=== PATIENT | female | born 1980 | race Caucasian/White ===

== ENCOUNTER 2017-08-29 08:50 | Inpatient (IN) | payer OTHER ==
[~2017-08-29] VITALS: Ht 165.1 cm; Wt 110.6 kg
[2017-08-29] MEDS ORDERED: iohexol 350MG/ML 100ml bottle IV ONE (09:30)
[2017-08-29 09:46] LABS: BASOPHILS % (AUTO) 0.2 % (0-1); EOSINOPHILS # (AUTO) 0.4 X10'3 (0-0.9); EOSINOPHILS % (AUTO) 3.4 % (0-6); HEMATOCRIT 29.8 % (35.0-45.0); HEMOGLOBIN 9.4 g/dl (12.0-16.0); LYMPHOCYTES # (AUTO) 1.4 X10'3 (1.1-4.8); MEAN CORPUSCULAR HEMOGLOBIN 22.4 PG (27.0-31.0); MEAN CORPUSCULAR HGB CONC 31.4 % (33.0-36.5); MEAN CORPUSCULAR VOLUME 71.4 FL (78-98); MEAN PLATELET VOLUME 7.7 FL (7.4-10.4); MONOCYTES # (AUTO) 0.7 X10'3 (0-0.9); MONOCYTES % (AUTO) 6.1 % (2-12); NEUTROPHILS # (AUTO) 8.3 X10'3 (1.8-7.7); NEUTROPHILS % (AUTO) 77.3 % (42-75); PLATELET COUNT 281 X10'3 (140-440); RED BLOOD COUNT 4.18 X10'6 (4.20-5.60); RED CELL DISTRIBUTION WIDTH 18.3 % (11.5-14.5); WHITE BLOOD COUNT 10.7 X10'3 (4.5-11.0)
[2017-08-29 10:04] LABS: ALANINE AMINOTRANSFERASE 12 U/L (12-78); ALBUMIN/GLOBULIN RATIO 0.7 (1.1-1.5); ALKALINE PHOSPHATASE 55 IU/L (46-116); ANION GAP 10 (8-16); ASPARTATE AMINO TRANSFERASE 11 U/L (10-37); BILIRUBIN,TOTAL 0.2 MG/DL (0.1-1.0); BLOOD UREA NITROGEN 10 MG/DL (7-18); BUN/CREATININE RATIO 14.1 (6.6-38.0); CALCIUM 8.7 MG/DL (8.5-10.1); CHLORIDE 105 MMOL/L (99-107); CREATININE 0.71 MG/DL (0.40-0.90); GLUCOSE 103 MG/DL (70-104); POTASSIUM 3.9 MMOL/L (3.5-5.1); SODIUM 138 MMOL/L (135-145); TOTAL CARBON DIOXIDE 23.2 MMOL/L (24-32); TOTAL PROTEIN 7.2 G/DL (6.4-8.2); eGFR > 90 ML/MIN
[2017-08-29 10:14] LABS: D-DIMER 5.11 MG/L FEU (0-0.50); INR 0.9 INR; PARTIAL THROMBOPLASTIN TIME 25 SECONDS (22-32); PROTHROMBIN TIME 9.7 SECONDS (9.0-12.0)
[2017-08-29] MEDS: K and/or MAG REPLACEMENT MC SCH (11:15)
[2017-08-29] MEDS ORDERED: magnesium 4gm in 100ml NS 100 ML IV PRN (11:15)
[2017-08-29] MEDS ORDERED: potassium Cl 20 mEq SR tablet PO PRN ×2 (11:15)
[2017-08-29] MEDS ORDERED: HYDROcodone/acetaminophen 10/325mg tab PO PRN (11:15)
[2017-08-29] MEDS ORDERED: HYDROcodone/acetaminophen 5mg/325mg tablet PO PRN (11:15)
[2017-08-29] MEDS ORDERED: mag hydrox/Alum hydrox/simeth 30ml oral suspension PO PRN (11:15)
[2017-08-29] MEDS ORDERED: acetaminophen 325mg tablet PO PRN ×2 (11:15)
[2017-08-29] MEDS ORDERED: morphine 4 MG/ML inj SYRINge IV PRN ×2 (11:15)
[2017-08-29] MEDS ORDERED: magnesium 2GM in 50ml NS 50 ML IV PRN (11:15)
[2017-08-29] MEDS ORDERED: magnesium Cl slow-release 64mg tablet PO PRN (11:15)
[2017-08-29] MEDS ORDERED: magnesium hydroxide 30ml (MOM) UD suspension PO PRN (11:15)
[2017-08-29] MEDS ORDERED: potassium Cl 40MEQ/NS 500ml 500 ML IV PRN ×2 (11:15)
[2017-08-29] MEDS ORDERED: ondansetron/PF 4mg/2ml inj IV PRN (11:15)
[2017-08-29] MEDS: normal saline 1000ml 1,000 ML IV SCH ×2 (11:32→20:58)
[2017-08-29] MEDS: rivaroxaban 15mg tablet PO SCH ×2 (11:32→20:16)
[2017-08-29] MEDS ORDERED: NORG1TAB12 PO (11:48)
[2017-08-29 14:19] LABS: FERRITIN 6 NG/ML (8-252)
[2017-08-29 15:00] VITALS: BP 138/84
[2017-08-29 15:06] LABS: % IRON SATURATION 4 % (11-46); IRON 15 UG/DL (49-151); TOTAL IRON BINDING CAPACITY 384 UG/DL (259-388)
[2017-08-29] MEDS: ferrous sulfate 325mg tablet PO SCH (17:30)
[2017-08-29] MEDS: ascorbic acid 500mg tablet PO SCH (17:30)
[2017-08-29 19:00] VITALS: BP 135/72
[2017-08-29 20:14] LABS: ALBUMIN 3.1 G/DL (3.4-5.0); ANION GAP 12 (8-16); BLOOD UREA NITROGEN 8 MG/DL (7-18); BUN/CREATININE RATIO 10.3 (6.6-38.0); CALCIUM 8.9 MG/DL (8.5-10.1); CHLORIDE 105 MMOL/L (99-107); CREATININE 0.78 MG/DL (0.40-0.90); GLUCOSE 94 MG/DL (70-104); POTASSIUM 3.9 MMOL/L (3.5-5.1); SODIUM 139 MMOL/L (135-145); TOTAL CARBON DIOXIDE 21.6 MMOL/L (24-32); eGFR 83 ML/MIN
[2017-08-29 23:00] VITALS: BP 127/64
[2017-08-30 03:00] VITALS: BP 134/74
[2017-08-30 05:52] LABS: BASOPHILS % (AUTO) 0.2 % (0-1); EOSINOPHILS # (AUTO) 0.3 X10'3 (0-0.9); EOSINOPHILS % (AUTO) 3.4 % (0-6); HEMATOCRIT 27.5 % (35.0-45.0); HEMOGLOBIN 8.8 g/dl (12.0-16.0); LYMPHOCYTES # (AUTO) 1.7 X10'3 (1.1-4.8); LYMPHOCYTES % (AUTO) 20.5 % (21-51); MEAN CORPUSCULAR HEMOGLOBIN 22.5 PG (27.0-31.0); MEAN CORPUSCULAR VOLUME 70.3 FL (78-98); MONOCYTES # (AUTO) 0.8 X10'3 (0-0.9); NEUTROPHILS # (AUTO) 5.6 X10'3 (1.8-7.7); NEUTROPHILS % (AUTO) 66.9 % (42-75); PLATELET COUNT 254 X10'3 (140-440); RED BLOOD COUNT 3.92 X10'6 (4.20-5.60); RED CELL DISTRIBUTION WIDTH 18.4 % (11.5-14.5); WHITE BLOOD COUNT 8.4 X10'3 (4.5-11.0)
[2017-08-30 06:00] VITALS: BP 136/79
[2017-08-30] MEDS: normal saline 1000ml 1,000 ML IV SCH ×2 (06:38→17:14)
[2017-08-30 06:50] LABS: ALANINE AMINOTRANSFERASE 14 U/L (12-78); ALBUMIN 2.6 G/DL (3.4-5.0); ALBUMIN/GLOBULIN RATIO 0.7 (1.1-1.5); ALKALINE PHOSPHATASE 42 IU/L (46-116); ANION GAP 10 (8-16); ASPARTATE AMINO TRANSFERASE 10 U/L (10-37); BILIRUBIN,TOTAL 0.2 MG/DL (0.1-1.0); BLOOD UREA NITROGEN 9 MG/DL (7-18); CALCIUM 8.2 MG/DL (8.5-10.1); CHLORIDE 107 MMOL/L (99-107); CREATININE 0.69 MG/DL (0.40-0.90); GLUCOSE 101 MG/DL (70-104); MAGNESIUM 1.8 MG/DL (1.5-2.4); PHOSPHORUS 2.9 MG/DL (2.3-4.5); SODIUM 140 MMOL/L (135-145); TOTAL CARBON DIOXIDE 22.8 MMOL/L (24-32); TOTAL PROTEIN 6.4 G/DL (6.4-8.2); eGFR > 90 ML/MIN
[2017-08-30] MEDS: K and/or MAG REPLACEMENT MC SCH (08:00)
[2017-08-30] MEDS: rivaroxaban 15mg tablet PO SCH ×2 (08:37→20:31)
[2017-08-30] MEDS: ascorbic acid 500mg tablet PO SCH ×2 (08:37→16:51)
[2017-08-30] MEDS: ferrous sulfate 325mg tablet PO SCH ×3 (08:37→16:51)
[2017-08-30 11:00] VITALS: BP 133/53
[2017-08-30 15:00] VITALS: BP 128/62
[2017-08-30 19:00] VITALS: BP 145/88
[2017-08-30 23:00] VITALS: BP 127/70
[2017-08-31 03:00] VITALS: BP 128/85
[2017-08-31] MEDS: normal saline 1000ml 1,000 ML IV SCH ×2 (03:14→08:41)
[2017-08-31 06:00] VITALS: BP 128/77
[2017-08-31 06:18] LABS: ALANINE AMINOTRANSFERASE 15 U/L (12-78); ALBUMIN 2.7 G/DL (3.4-5.0); ALBUMIN/GLOBULIN RATIO 0.7 (1.1-1.5); ALKALINE PHOSPHATASE 44 IU/L (46-116); ANION GAP 10 (8-16); ASPARTATE AMINO TRANSFERASE 19 U/L (10-37); BILIRUBIN,TOTAL 0.1 MG/DL (0.1-1.0); BLOOD UREA NITROGEN 10 MG/DL (7-18); BUN/CREATININE RATIO 14.5 (6.6-38.0); CALCIUM 8.5 MG/DL (8.5-10.1); CHLORIDE 107 MMOL/L (99-107); CREATININE 0.69 MG/DL (0.40-0.90); GLUCOSE 99 MG/DL (70-104); MAGNESIUM 1.9 MG/DL (1.5-2.4); SODIUM 139 MMOL/L (135-145); TOTAL CARBON DIOXIDE 21.9 MMOL/L (24-32); TOTAL PROTEIN 6.8 G/DL (6.4-8.2); eGFR > 90 ML/MIN
[2017-08-31 06:20] LABS: POTASSIUM 4.3 MMOL/L (3.5-5.1)
[2017-08-31] MEDS: K and/or MAG REPLACEMENT MC SCH (07:14)
[2017-08-31 07:30] LABS: BASOPHILS % (AUTO) 0.6 % (0-1); EOSINOPHILS # (AUTO) 0.3 X10'3 (0-0.9); EOSINOPHILS % (AUTO) 3.4 % (0-6); HEMATOCRIT 29.3 % (35.0-45.0); HEMOGLOBIN 9.5 g/dl (12.0-16.0); LYMPHOCYTES # (AUTO) 1.6 X10'3 (1.1-4.8); LYMPHOCYTES % (AUTO) 18.9 % (21-51); MEAN CORPUSCULAR HEMOGLOBIN 22.5 PG (27.0-31.0); MEAN CORPUSCULAR HGB CONC 32.4 % (33.0-36.5); MEAN CORPUSCULAR VOLUME 69.6 FL (78-98); MEAN PLATELET VOLUME 7.8 FL (7.4-10.4); MONOCYTES # (AUTO) 0.5 X10'3 (0-0.9); MONOCYTES % (AUTO) 6.1 % (2-12); NEUTROPHILS # (AUTO) 5.9 X10'3 (1.8-7.7); PLATELET COUNT 278 X10'3 (140-440); RED BLOOD COUNT 4.21 X10'6 (4.20-5.60); RED CELL DISTRIBUTION WIDTH 18.3 % (11.5-14.5); WHITE BLOOD COUNT 8.3 X10'3 (4.5-11.0)
[2017-08-31 07:51] LABS: ANISOCYTOSIS 2+; MICROCYTOSIS 2+; PLATELET ESTIMATE NORMAL; POIKILOCYTOSIS FEW; POLYCHROMASIA FEW
[2017-08-31] MEDS: ferrous sulfate 325mg tablet PO SCH ×2 (08:40→12:18)
[2017-08-31] MEDS: rivaroxaban 15mg tablet PO SCH (08:40)
[2017-08-31] MEDS: ascorbic acid 500mg tablet PO SCH (08:41)
[2017-08-31] MEDS ORDERED: ASCO500C15 PO (10:37)
[2017-08-31] MEDS ORDERED: RIVA15TA PO (10:37)
[2017-08-31] MEDS ORDERED: FER325T PO (10:37)
[2017-08-31 11:00] VITALS: BP 123/80
== END 2017-08-31 13:30 | disposition home or self-care (01) | DRG 299 ==
LOC: ER 08:51 → ED HOLD 11:14 → EDBEDREQ 13:29 → PCU 3S 15:03
PROVIDERS: ADMIT Family Medicine; ATTEND Family Medicine
DX: I82.402 Acute embolism and thrombosis of unspecified deep veins of left lower extremity (principal); I26.99 Other pulmonary embolism without acute cor pulmonale; Z68.41 Body mass index [BMI] 40.0-44.9, adult; I82.91 Chronic embolism and thrombosis of unspecified vein; I82.432 Acute embolism and thrombosis of left popliteal vein; D50.0 Iron deficiency anemia secondary to blood loss (chronic); R79.1 Abnormal coagulation profile; Z79.01 Long term (current) use of anticoagulants; Z80.0 Family history of malignant neoplasm of digestive organs; Z87.891 Personal history of nicotine dependence
CPT/HCPCS: 36415; 71045; 71275; 80048; 80053; 82607; 82728; 82746; 83540; 83550; 83735; 84100; 84484; 85025; 85379; 85610; 85730; 87070; 93005; 93306; 93971; 99285; J7030; Q9967